=== PATIENT | male | born 1970 | race Caucasian/White ===

== ENCOUNTER 2022-01-26 11:39 | Emergency (ER) | payer BC ==
[2022-01-26 12:09] VITALS: RESP 18; BMI 19.5
[2022-01-26 14:33] LABS: BASO % 0.4 % (0-2.0); EOS % 1.7 % (0-4.5); HEMATOCRIT 47.2 % (35.4-49); HEMOGLOBIN 15.5 GM/dL (11.7-16.9); LYMPH % 18.5 % (8-40); MCH 28.8 pg (25.7-33.7); MCHC 32.9 g/dl (32.0-35.9); MEAN CELL VOLUME 87.7 fl (80-96); MEAN PLT VOLUME 10.1 fl (7.5-11.1); NEUT % 70.4 % (42.8-82.8); PLATELET COUNT 177 10^3/uL (134-434); RBC 5.38 M/mm3 (4.00-5.60); WHITE BLOOD COUNT 9.6 K/mm3 (4.0-10.0)
[2022-01-26 14:41] LABS: INR 1.05 (0.83-1.09); PROTHROMBIN TIME (PATIENT) 12.1 SEC (9.7-13.0)
[2022-01-26 14:44] LABS: ACTIVATED PTT 32.8 SECONDS (25.2-36.5)
[2022-01-26 14:54] LABS: ALBUMIN 3.5 g/dl (3.4-5.0); CALCIUM 8.6 mg/dL (8.5-10.1)
[2022-01-26 14:57] LABS: CREATININE 0.8 mg/dL (0.55-1.3)
[2022-01-26 14:58] LABS: BILIRUBIN,TOTAL 0.5 mg/dL (0.2-1)
[2022-01-26 14:59] LABS: TOT PROT 7.2 g/dl (6.4-8.2)
[2022-01-26 16:01] LABS: MAGNESIUM 2.3 mg/dL (1.8-2.4)
[2022-01-26 16:05] LABS: PHOSPHOROUS 2.8 mg/dL (2.5-4.9)
[2022-01-26 17:25] VITALS: BP 165/90; PULSE 75; TEMP 98.2
== END 2022-01-26 17:00 | disposition home or self-care (01) ==
LOC: JER 11:39
DX: R00.2 Palpitations (principal)
CPT/HCPCS: 36415; 71046-TC-FY; 80053; 83735; 84100; 84443; 84484; 85025; 85610; 85730; 93005; 93010; 99285-25